=== PATIENT | female | born 1965 | race Caucasian/White ===

== ENCOUNTER 2021-07-29 09:29 | Emergency (ER) | payer BC ==
[~2021-07-29] VITALS: Ht 170.2 cm; Wt 100.0 kg
[~2021-07-29 09:29] MED LIST: AMOX/K CLAV875 M1 PO; ANTIVERT25 MG OR; ATIVAN1 MG PO; LEXAPRO10 MG PO; LORTAB 7.5-3251 TAB PO; MOTRIN800 MG PO; PRILOSEC20 MG/CAP PO; ZOFRAN ODT8 MG OR
[2021-07-29 11:21] LABS: HEMATOCRIT 43.4 % (37.0-47.0); IMMATURE GRANULOCYTES 0.3 % (0.0-5.0); MEAN CORPUSCULAR HGB 35.6 pG CALC (26.0-32.0); MEAN CORPUSCULAR HGB CONC 32.3 g/dL CAL (32.0-36.0); NEUT# 7.66 thou/uL (2.00-7.15); RED BLOOD COUNT 3.93 mill/uL (4.20-5.60); RED CELL DISTRI WIDTH 11.9 % (11.5-15.5)
[2021-07-29 11:24] LABS: MEAN CELL VOLUME 110.4 fL CALC (80.0-100.0)
[2021-07-29 11:25] LABS: ALBUMIN 4.5 g/dL (3.2-5.0); ALKALINE PHOSPHATASE 90 u/l (38-126); ANION GAP 15 (6-22 (CALC)); BILIRUBIN, TOTAL 0.7 mg/dL (0.0-1.4); BUN 16 mg/dL (7-17); BUN/CREATININE RATIO 24 (12-20 (CALC)); CARBON DIOXIDE 24 mmol/l (22-30); CHLORIDE 103 mmol/l (95-108); CPK 30 u/l (30-165); CREATININE 0.7 mg/dL (0.5-1.0); GFR > 60 ML/MIN (>=60 (CALC)); GFR FOR AFR.AMER. > 60 ML/MIN (>=60 (CALC)); POTASSIUM 4.4 mmol/l (3.5-5.1); SODIUM 137 mmol/l (137-146); TOTAL PROTEIN 8.7 g/dL (6.3-8.2)
[2021-07-29 11:32] LABS: SGOT/AST 50 u/l (14-36)
[2021-07-29] MEDS ORDERED: HYDROCO/APAP1 T10 PO (14:08)
[2021-07-29] MEDS ORDERED: CYCLOBENZAPRINE10 MG PO (14:08)
[2021-07-29 14:25] VITALS: BP 114/76
== END 2021-07-29 14:25 | disposition home or self-care (01) | DRG 93 ==
LOC: ED 09:29
PROVIDERS: Family Medicine
DX: G72.9 Myopathy, unspecified (principal); E11.9 Type 2 diabetes mellitus without complications; I10 Essential (primary) hypertension; K21.9 Gastro-esophageal reflux disease without esophagitis; E78.5 Hyperlipidemia, unspecified; F17.210 Nicotine dependence, cigarettes, uncomplicated

== ENCOUNTER 2021-07-31 10:14 | Observation (INO) | payer BC ==
[~2021-07-31] VITALS: Ht 170.2 cm; Wt 90.0 kg
[~2021-07-31 10:14] MED LIST changes: +CYCLOBENZAPRINE10 MG PO; +HYDROCO/APAP1 T10 PO
--- NOTE | 2021-07-31 11:03 | NUR ---
TRIAGE COMPLETED. PT IN NO ACUTE DISTRES. VSS, RESP EVEN AND UNLABORED. UPDATED ON BUSY ED STATUS AND WAIT TIME. PT RETURNED TO LOBBY VIA WC TO WAIT WITH HER MOTHER. INSTRUCTED TO NOTIFY REGISTRATION OF ANY CHANGE IN CONDITION.
--- NOTE | 2021-07-31 14:10 | NUR ---
PT TO ROOM 5 VIA WC ABLE TO STAND AND TRANSFER WITHOUT ASSIST.
--- NOTE | 2021-07-31 15:15 | NUR ---
Pt. laying in bed awake and alert. Skin w/p/d. No distress noted. Mother @ bedside.
[2021-07-31 15:40] LABS: HEMATOCRIT 40.2 % (37.0-47.0); IMMATURE GRANULOCYTES 0.2 % (0.0-5.0); MEAN CELL VOLUME 109.8 fL CALC (80.0-100.0); MEAN CORPUSCULAR HGB 35.5 pG CALC (26.0-32.0); MEAN CORPUSCULAR HGB CONC 32.3 g/dL CAL (32.0-36.0); NEUT# 6.98 thou/uL (2.00-7.15); RED BLOOD COUNT 3.66 mill/uL (4.20-5.60); RED CELL DISTRI WIDTH 11.7 % (11.5-15.5)
[2021-07-31 16:00] LABS: ALBUMIN 4.2 g/dL (3.2-5.0); ALKALINE PHOSPHATASE 81 u/l (38-126); ANION GAP 15 (6-22 (CALC)); BILIRUBIN, TOTAL 0.6 mg/dL (0.0-1.4); BUN 13 mg/dL (7-17); BUN/CREATININE RATIO 20 (12-20 (CALC)); CARBON DIOXIDE 27 mmol/l (22-30); CHLORIDE 100 mmol/l (95-108); CPK 26 u/l (30-165); CREATININE 0.6 mg/dL (0.5-1.0); GFR > 60 ML/MIN (>=60 (CALC)); GFR FOR AFR.AMER. > 60 ML/MIN (>=60 (CALC)); POTASSIUM 4.2 mmol/l (3.5-5.1); SGOT/AST 28 u/l (14-36); SODIUM 138 mmol/l (137-146); TOTAL PROTEIN 7.4 g/dL (6.3-8.2)
[2021-07-31 16:10] LABS: C-REACTIVE PROTEIN 17.6 mg/dL (0-0.9)
--- NOTE | 2021-07-31 16:43 | NUR ---
Pt. laying in be awake and alert. No distress noted. Mother @ bedside.
[2021-07-31 16:47] LABS: URINE BILIRUBIN - DIPSTICK NEGATIVE (NEGATIVE); URINE BLOOD DIPSTICK NEGATIVE (NEGATIVE); URINE COLOR YELLOW; URINE GLUCOSE - DIPSTICK NEGATIVE (NEGATIVE); URINE KETONE NEGATIVE (NEGATIVE); URINE LEUK ESTERASE TRACE (NEGATIVE); URINE NITRITE - DIPSTICK NEGATIVE (Negative); URINE PH 7.5 (4.5-8.0); URINE PROTEIN - DIPSTICK NEGATIVE (NEG-TRACE)
--- NOTE | 2021-07-31 17:25 | NUR ---
Pt. standing up @ bedside. No distress noted. Voice no questions or concerns. Updated on wait time. Pt. voiced understanding. Mother @ bedside.
--- NOTE | 2021-07-31 18:12 | NUR ---
Dr. Umana @ bedside to discuss results and plan of care.
--- NOTE | 2021-07-31 19:00 | NUR ---
Pt. denies medication allergies.
--- NOTE | 2021-07-31 20:00 | NUR ---
Pt. lying in bed awake and alert. No distress noted.
[2021-07-31] MEDS ORDERED: LOSARTAN POTAS100 MG PO (20:04)
[2021-07-31] MEDS ORDERED: VENLAFAXINE HCL75 M1 PO (20:04)
[2021-07-31] MEDS ORDERED: METFORMIN HCL500 M1 PO (20:05)
[2021-07-31] MEDS ORDERED: JANUVIA100 MG PO (20:06)
--- NOTE | 2021-07-31 21:35 | NUR ---
Admission Note Report Given to: SKINNY CONTRERAS Transported by: X Wheelchair Stretcher Transported with: X Nurse Transporter X Patent IV O2 Sales Data Analyst Location: ICU X MS2 Pt. tolerated treatment well.
[2021-07-31 21:38] VITALS: BP 122/69
--- NOTE | 2021-07-31 22:40 | NUR ---
PATIENT ADMITTED FROM ER VIA WHEELCHAIR WITH ER STAFF IN ATTENDANCE. PATIENT ABLE TO TRANSFER TO BED. AWAKE ALERT AND ORIENTEDX3. PATIENT ADMITTED FOR GENERALIZED BODY PAIN TO ALL JOIST AND MUSCLE PAIN. WAS RECENTLY PLACED ON STATINS AND JARDIANCE FOR DIAB WHEN THESE SX STARTED. THE STATED MEDS WERE THEN D/C'ED PER PATIENT AND THESE SX HAVE PERSISTED. STATES THAT HER PCP IS DR. LARA AND THAT SHE HAS APPT TO SEE HIM ON THURSDAY 08/03. GLUCOSE METER IS 169 AT THIS TIME AND PATIENT COVERED WITH 1UNIT OF HUMALOG PER COVERAGE PROTOCOL. PROVIDED WITH HEALTHY CHOICE TURKEY DINNER. STATES THAT HER LAST BM WAS YESTERDAY 07/30 AND STATES NO DIFFICULTY WITH URINATION. ABD IS SOFT WITH ACTIVE BS. LUNGS ARE CLEAR. NO PERIPHERAL EDEMA-PULSE PALPABLE PATIENT ORIENTED TO ROOM AND SURROUNDINGS. INSTRUCTED ON USE OF NURSE CALL LIGHT SYSTEM AND TV REMOTE. SAFETY PRECAUTIONS REINFORCED. PATIENT MEDICATED FOR SLEEP WITH SONATA 5MG PO AND FOR GENERALIZED BODY/JOINT PAIN WITH LORTAB 7.5MG PO. CALL LIGHT IN REACH. WILL CONT TO MONITOR.
--- NOTE | 2021-08-01 01:00 | NUR ---
RESTING IN BED AT THIS TIME WITH EYES CLOSED. RESPS ARE EVEN AND UNLABORED. IVF PATENT AND INFUSING VIA LAC SITE AT 100CC/HR. CALL LIGHT IN REACH. WILL CONT TO MONITOR.
[2021-08-01 04:00] VITALS: BP 112/62
--- NOTE | 2021-08-01 04:25 | NUR ---
PATIENT MIN ASSIST UP TO THE BR TO VOID AND THEN BACK TO BED. IVF NS PATENT AND INFUSING VIA LAC SITE. PATIENT MEDICATED FOR GENERALIZED PAIN WITH LORTAB 7.5MN PO. SAFETY PRECAUTIONS REINFORCED. CALL LIGHT IN REACH. WILL CONT TO MONITOR.
--- NOTE | 2021-08-01 06:50 | NUR ---
REPORT FROM BEN BABB. ASSUMED PT CARE.
[2021-08-01] MEDS ORDERED: FENOFIBRATE145 MG PO (07:14)
[2021-08-01] MEDS ORDERED: PRAVASTATIN SOD20 MG PO (07:15)
[2021-08-01] MEDS ORDERED: JARDIANCE25 MG PO (07:15)
[2021-08-01 07:33] VITALS: BP 120/68
--- NOTE | 2021-08-01 10:43 | NUR ---
PHYSICIAN AT BEDSIDE
--- NOTE | 2021-08-01 11:04 | NUR ---
PHYSICIAN AT BEDSIDE.
[2021-08-01 15:36] VITALS: BP 131/71
[2021-08-01 18:31] VITALS: BP 126/74
--- NOTE | 2021-08-01 20:00 | NUR ---
PATIENT RESTING IN BED AT THIS TIME-AWAKE ALERT AND ORIENTEDX3. PATIENT STATES THAT HE IS FEELING BETTER-MUSCLE ACHES AND PAINS IMPROVED. IVF NS PATENT AND INFUSING VIA LAC AT 100CC/HR. SITE REMAINS HEALTHY. UP TO THE BR TO VOID WITHOUT AND DIFFICLUTY. LAST BM WAS 07/30/21. OFFERED MOM BUT PATIENT DECLINED-MAYBE IN THE MORNING. SAFETY PRECAUTIONS REINFORCED. CALL LIGHT IN REACH. WILL CONT TO MONITOR.
--- NOTE | 2021-08-01 21:30 | NUR ---
PATIENT RESTING IN BED-GLUCOSE MONITOR IS 187-COVERED WITH HUMALOG 1UNIT SQ PER SS COVERAGE PROTOCOL. HS SNACK PROVIDED. SONATA 5MG PO GIVEN FOR SLEEP. CALL LIGHT IN REACH. WILL CONT TO MONITOR.
--- NOTE | 2021-08-02 | NUR ---
PATIENT RESTING IN BED WITH EYES CLOSED. RESP ARE EVEN AND UNLABORED. IVF PATENT AND INFUSING ORDERED AT 100CC/HR. CALL LIGHT IN REACH. WILL CONT TO MONITOR.
--- NOTE | 2021-08-02 03:05 | NUR ---
PATIENT RESTING IN BED THIS TIME. NEW BAG OF IVF HUNG VIA LAC SITE AT 100CC/HR. SITE REMAINS HEALTHY. MEDICATED FOR GENERALIZED PAIN WITH LORTAB 7.5MG PO FOR 4/10 PAIN SCALE. SAFETY PRECAUTIONS REINFORCED. CALL LIGHT IN REACH. WILL CONT TO MONITOR.
[2021-08-02 04:16] VITALS: BP 125/70
--- NOTE | 2021-08-02 04:45 | NUR ---
RESTING IN BED AT THIS TIME WITH EYES CLOSED. RESPS ARE EVEN AND UNLABORED. CALL LIGHT IN REACH. WILL CONT TO MONITOR.
[2021-08-02 05:53] LABS: IMMATURE GRANULOCYTES 0.2 % (0.0-5.0); MEAN CELL VOLUME 113.1 fL CALC (80.0-100.0); MEAN CORPUSCULAR HGB 36.2 pG CALC (26.0-32.0); NEUT# 6.06 thou/uL (2.00-7.15); RED BLOOD COUNT 2.98 mill/uL (4.20-5.60); RED CELL DISTRI WIDTH 11.7 % (11.5-15.5)
[2021-08-02 05:55] LABS: HEMATOCRIT 33.7 % (37.0-47.0); HEMOGLOBIN 10.8 g/dl (12.0-16.0)
[2021-08-02 06:12] LABS: ALKALINE PHOSPHATASE 78 u/l (38-126); ANION GAP 11 (6-22 (CALC)); BUN 21 mg/dL (7-17); BUN/CREATININE RATIO 27 (12-20 (CALC)); CARBON DIOXIDE 28 mmol/l (22-30); CHLORIDE 108 mmol/l (95-108); CREATININE 0.8 mg/dL (0.5-1.0); GFR > 60 ML/MIN (>=60 (CALC)); GFR FOR AFR.AMER. > 60 ML/MIN (>=60 (CALC)); POTASSIUM 4.9 mmol/l (3.5-5.1); SGOT/AST 21 u/l (14-36); SODIUM 142 mmol/l (137-146)
[2021-08-02 06:23] LABS: ALBUMIN 3.2 g/dL (3.2-5.0); BILIRUBIN, TOTAL 0.2 mg/dL (0.0-1.4)
[2021-08-02 07:28] VITALS: BP 136/76
--- NOTE | 2021-08-02 08:00 | NUR ---
ASSESSMENT AND VITALS ALLOWED AT THIS TIME. PT STATES NO PAIN AT THIS TIME. STATES THEY ARE READY TO GO HOME. IV: 20G LAC INFUSING NS PER EMAR. GLUCOSE METER CHECK THIS MORNING 128: NO COVERAGE NEEDED PER SLIDING SCALE. FALL/SAFETY PRECAUTIONS IN PLACE. CALL LIGHT WITHIN REACH.
[2021-08-02] MEDS ORDERED: PREDNISONE10 MG PO (09:07)
--- NOTE | 2021-08-02 10:05 | NUR ---
Attempted treatment this am, pt refused stated she is going home and has no difficulty with mobility. Spent time instructing pt in activity level with returning home, not to over do apurva since she is on predinsone. Pt left resting in bed.
--- NOTE | 2021-08-02 12:00 | NUR ---
PT EATING LUNCH THIS TIME. NO DISTRESS NOTED. IV PATENT INFUSING IVF WITH NO COMPLICATION. FALL/SAFTEY PRECAUTION IN PLACE. CALL LIGHT WITHIN REACH.
--- NOTE | 2021-08-02 12:50 | NUR ---
Discharge instructions given. Patient verbalizes understanding of same. Discharged in stable condition via Ambulatory to Home with staff. All belongings sent with pt. IV 20 LAC REMOVED CATHETER FULLY INTACT. PT WANTED TO AMBULATE. ESCORTED BY SKINNY THOMAS (BILLING CLINICIAN). TOOK ALL BELONGINGS AND INSTRUCTIONS.
== END 2021-08-02 12:43 | disposition home or self-care (01) | DRG 93 ==
LOC: ED 10:14 → MS2 19:01
PROVIDERS: Emergency Medicine; Nurse Practitioner; ADMIT Internal Medicine; ATTEND Internal Medicine
DX: G72.0 Drug-induced myopathy (principal); T46.6X5A Adverse effect of antihyperlipidemic and antiarteriosclerotic drugs, initial encounter; E11.9 Type 2 diabetes mellitus without complications; I10 Essential (primary) hypertension; K21.9 Gastro-esophageal reflux disease without esophagitis; E78.5 Hyperlipidemia, unspecified; F41.9 Anxiety disorder, unspecified; F32.9 Major depressive disorder, single episode, unspecified; F17.200 Nicotine dependence, unspecified, uncomplicated; Z79.84 Long term (current) use of oral hypoglycemic drugs; Z20.822 Contact with and (suspected) exposure to COVID-19
CPT/HCPCS: G0378